=== PATIENT | female | born 1980 | race Caucasian/White ===

== ENCOUNTER 2025-07-06 12:55 | Emergency (ER) | payer BC ==
[~2025-07-06] VITALS: Ht 162.6 cm; Wt 43.5 kg
[2025-07-06] MEDS ORDERED: BACLOFEN (10 MG) 10 MG TABLET ONE (13:45)
[2025-07-06] MEDS ORDERED: oxyCODONE/APAP (5/325 MG) 1 UDTAB TABLET ONE (13:45)
[2025-07-06] MEDS: BACLOFEN (10 MG) 10 MG TABLET PO ONE (14:01)
[2025-07-06] MEDS: oxyCODONE/APAP (5/325 MG) 1 UDTAB TABLET PO ONE (14:02)
[2025-07-06 14:22] LABS: PLATELET COUNT (AUTO) 293 K/uL (150-450); RED BLOOD CELL COUNT(AUTO) 4.40 MIL/uL (4.0-5.2); RED CELL DISTRIBUTION WIDTH 15.3 % (11.5-15.0); WHITE BLOOD COUNT (AUTO) 5.3 K/uL (4.3-11.0)
[2025-07-06 14:27] LABS: APPEARANCE,URINE CLEAR (CLEAR); BLOOD, URINE NEGATIVE Ery/uL (NEGATIVE); LEUKOCYTE ESTERASE ,URINE NEGATIVE (NEGATIVE); NITRITE, URINE NEGATIVE (NEGATIVE); UGLUCOSE NEGATIVE (NEGATIVE)
[2025-07-06 14:29] LABS: ASPARTATE AMINOTRANSFERASE 29 U/L (15-37); CALCIUM, SERUM 9.1 mg/dL (8.5-10.1); CREATININE 0.6 mg/dL (0.6-1.3); SODIUM SERUM 137 mmol/L (136-145); TOTAL PROTEIN, SERUM 7.0 g/dL (6.4-8.2); UREA NITROGEN, BLOOD 7 mg/dL (7-18)
[2025-07-06 14:30] LABS: ALCOHOL, BLOOD < 3 mg/dL (0-10)
[2025-07-06 14:31] LABS: PREGNANCY TEST URINE QUAL NEGATIVE (NEGATIVE)
[2025-07-06 14:38] LABS: AMPHETAMINE, URINE NEGATIVE (NEGATIVE); BARBITURATE, URINE NEGATIVE (NEGATIVE); BENZODIAZEPINE, URINE NEGATIVE (NEGATIVE); CANNABINOID, URINE NEGATIVE (NEGATIVE); COCCAINE, URINE NEGATIVE (NEGATIVE); OPIATE, URINE NEGATIVE (NEGATIVE)
[2025-07-06] MEDS ORDERED: IBUP-1953 PO (16:02)
[2025-07-06 16:20] VITALS: BP 124/78; TEMP 98.2; O2SAT 96
== END 2025-07-06 16:20 | disposition home or self-care (01) ==
LOC: ER 12:57
DX: G89.29 Other chronic pain (principal); M54.2 Cervicalgia; R53.1 Weakness; F32.A Depression, unspecified; F41.9 Anxiety disorder, unspecified; Z76.5 Malingerer [conscious simulation]; Z88.0 Allergy status to penicillin; Z86.79 Personal history of other diseases of the circulatory system; Z20.822 Contact with and (suspected) exposure to COVID-19
CPT/HCPCS: 36415; 80048-TC; 80076-TC; 84703-TC; 85025-TC; G0480